=== PATIENT | female | born 1930 | race Hispanic/Latino ===

== ENCOUNTER 2017-10-18 11:59 | Emergency (ER) | payer MEDICARE ==
--- NOTE | 2017-10-18 12:42 | Emergency Department Report ---
HPI - General Chief Complaint: Weakness Time Seen by Provider: 10/18/17 12:19 - HPI HPI: 87-year-old female presents to the emergency department via EMS with complaint of some generalized fatigue after taking an extra Percocet by accident. The patient has a history of chronic back pains and recent back surgery and was placed on Percocet, Toradol and some other medications for pain control. She says that she woke up this morning at 7 AM and took a Percocet. She then went back to bed and woke up again around 10 AM and had forgotten that she took the morning pain medication. She took another Percocet, along with her blood pressure medications. Shortly after this she said that she felt "bad " that she describes as feeling very tired and generalized weakness. She walks with a walker at baseline. She has a primary care physician and surgeon back in [place]. She is currently visiting family and on her way up to [place]. ED Past Medical Hx - Surgical History Past Surgical History?: Yes Additional Surgical History: back surgery, bilat hip replacement, - Social History Smoking Status: Never Smoker ED Review of Systems ROS: Stated complaint: MEDICATION OVERDOSE Other details as noted in HPI Constitutional: malaise, weakness Eyes: denies: eye pain, eye discharge, vision change ENT: denies: ear pain, throat pain Respiratory: denies: cough, shortness of breath, wheezing Cardiovascular: denies: chest pain, palpitations Gastrointestinal: denies: abdominal pain, nausea, diarrhea Genitourinary: denies: urgency, dysuria, discharge Musculoskeletal: denies: joint swelling, arthralgia Skin: denies: rash, lesions Neurological: denies: headache, weakness, paresthesias Physical Exam - Physical Exam Vital Signs: Vital Signs 10/18/17 12:09 Temperature 98.5 F Pulse Rate 74 Respiratory 16 Rate Blood Pressure 148/55 O2 Sat by Pulse 98 Oximetry Physical Exam: GENERAL: The patient is well-developed well-nourished. HENT: Normocephalic. Atraumatic. Patient has moist mucous membranes. EYES: Extraocular motions are intact. Pupils equal reactive to light bilaterally. NECK: Supple. Trachea is midline. CHEST/LUNGS: Clear to auscultation. There is no respiratory distress noted. HEART/CARDIOVASCULAR: Regular. There is no tachycardia. There is no murmur. ABDOMEN: Abdomen is soft, nontender. Patient has normal bowel sounds. There is no abdominal distention. SKIN: Skin is warm and dry. NEURO: The patient is awake, alert, and oriented. The patient is cooperative. The patient has no focal neurologic deficits. The patient has normal speech. Cranial nerves II through XII grossly intact. MUSCULOSKELETAL: There is no tenderness or deformity. There is no evidence of acute injury. ED Course Vital Signs 10/18/17 12:09 Temperature 98.5 F Pulse Rate 74 Respiratory 16 Rate Blood Pressure 148/55 O2 Sat by Pulse 98 Oximetry ED Medical Decision Making - Lab Data Result diagrams: 10/18/17 12:39 10/18/17 12:44 - EKG Data -: EKG Interpreted by Me - EKG Data When compared to previous EKG there are: previous EKG unavailable Interpretation: other (AV paced rhythm, normal axis, normal intervals, rate of 63 bpm) - Medical Decision Making The patient presented with complaint of some increased fatigue and/or generalized weakness after she took an extra 10 mg Percocet, allegedly accidentally. On physical exam she does not have any focal, motor or sensory deficits in her cranial nerves are intact. Labs were unremarkable. EKG did not show any signs of ST elevation [place] or dysrhythmia. Vital signs were stable throughout her ED course included being afebrile. The patient normally walks with a walker, it was difficult to get her up and test her ambulation. However the patient says she is feeling much better and asking for discharge home. She has remained awake and is talking to her friend who is bedside in an animated manner. She will longer appears fatigued or weak. She was instructed to take her prescription medication only as prescribed and to return to the emergency department immediately if she has any worsening of her symptoms or any acute distress. She understands and agrees to the plan. Critical Care Time: No Critical care attestation.: If time is entered above; I have spent that time in minutes in the direct care of this critically ill patient, excluding procedure time. ED Disposition Clinical Impression: Accidental medication overdose Qualifiers: Encounter type: initial encounter Qualified Code(s): T50.901A - Poisoning by unspecified drugs, medicaments and biological substances, accidental ( unintentional), initial encounter Fatigue Qualifiers: Fatigue type: unspecified Qualified Code(s): R53.83 - Other fatigue Disposition: TO HOME OR SELFCARE Is pt being admited?: No Condition: Stable Additional Instructions: Please follow up with your primary care physician as soon as you are able to do so. Make sure to take your pain medication and all medications only as prescribed. Return to the emergency Department with any worsening of your symptoms or any acute distress. Referrals: PRIMARY CARE, [Primary Care Provider] - [facility] Time of Disposition: 14:07
[2017-10-18 13:22] LABS: Basophils # (Auto) 0.1 K/mm3 (0.0-0.1); Basophils % (Auto) 0.6 % (0.0-1.8); Eosinophils # (Auto) 0.6 K/mm3 (0.0-0.4); Eosinophils % (Auto) 5.8 % (0.0-4.3); Hemoglobin 10.7 gm/dl (10.1-14.3); Lymphocytes # (Auto) 0.4 K/mm3 (1.2-5.4); Lymphocytes % (Auto) 3.8 % (13.4-35.0); Mean Corpuscular HGB Conc 34 % (30-34); Mean Corpuscular Hemoglobin 31 pg (28-32); Mean Corpuscular Volume 93 fl (79-97); Monocytes # (Auto) 0.6 K/mm3 (0.0-0.8); Monocytes % (Auto) 6.2 % (0.0-7.3); Platelet Count 289 K/mm3 (140-440); Red Blood Count 3.43 M/mm3 (3.65-5.03); Red Cell Distribution Width 13.8 % (13.2-15.2)
[2017-10-18 13:25] LABS: Alanine Aminotransferase 48 units/L (7-56); Albumin 3.7 g/dL (3.9-5); BUN/Creatinine Ratio 28; Blood Urea Nitrogen 22 mg/dL (7-17); Calcium 9.1 mg/dL (8.4-10.2); Hemolysis Index 6
[2017-10-18 13:58] VITALS: BP 129/43
== END 2017-10-18 14:16 | disposition home or self-care (01) ==
LOC: ED 11:59
DX: T39.1X1A Poisoning by 4-Aminophenol derivatives, accidental (unintentional), initial encounter (principal); Y92.89 Other specified places as the place of occurrence of the external cause
CPT/HCPCS: 36415; 80053; 84443; 84484; 85025; 93005; 93010; 99284